=== PATIENT | female | born 1990 | race Caucasian/White ===

== ENCOUNTER 2019-09-28 09:26 | Inpatient (IN) | payer BC, OTHER ==
[2019-09-28] MEDS ORDERED: Bupivacaine PF 0.5% 30 ML VIAL ONE (11:32)
[2019-09-28 18:49] VITALS: BMI 41.5
[2019-09-28] MEDS ORDERED: Lidocaine 1% (PF) 30 ML VIAL SC PRN (19:01)
[2019-09-28] MEDS ORDERED: hydrALAZINE 20 MG/ML VIAL SLOW IVP PRN (19:01)
[2019-09-28] MEDS ORDERED: Butorphanol Tartrate 1 MG/ML VIAL SLOW IVP PRN (19:01)
[2019-09-28] MEDS ORDERED: Promethazine HCl 25 MG/ML VIAL IM PRN (19:01)
[2019-09-28] MEDS ORDERED: NS / Oxytocin 40 units/1000ml 1,000 ML IV PRN (19:01)
[2019-09-28] MEDS ORDERED: HYDROcodone/Acetaminophen 5/325 mg Tablet PO PRN ×2 (19:01)
[2019-09-28] MEDS ORDERED: Ibuprofen 800 MG TAB PO PRN (19:01)
[2019-09-28] MEDS ORDERED: Ondansetron PF 4 MG/2 ML Vial IVP PRN (19:01)
--- NOTE | 2019-09-28 19:03 | PDOC.BPN ---
- Brief Progress Note Asked to place courtesy orders in for Dr Zeng. Patient not seen by me at this time. Care as per primary MD.
[2019-09-28 20:38] LABS: Hemoglobin 13.2 g/dL (12.0-16.0); Mean Corpuscular HGB CONC 35.7 g/dL (32.0-36.0); Mean Corpuscular Hemoglobin 33.8 pg (27.0-31.0); Mean Corpuscular Volume 94.6 fL (78.0-98.0); Mean Platelet Volume 8.1 fL (7.4-10.4); Platelet Count 213 thou/uL (130-400); RBC Distribution Width 12.1 % (11.5-14.5); Red Blood Cell (RBC) Count 3.92 mill/uL (4.20-5.40); White Blood Cell (WBC) Count 10.7 thou/uL (4.8-10.8)
[2019-09-28] MEDS: Misoprostol 100 MCG TAB VAG SCH ×2 (20:41→23:58)
[2019-09-28] MEDS: Lactated Ringer's 1,000 ML IV SCH ×2 (20:41→23:27)
[2019-09-28 21:00] LABS: ALT (SGPT) 13 U/L (8-55); AST (SGOT) 18 U/L (5-34); Albumin 3.5 g/dL (3.5-5.0); Alkaline Phosphatase 139 U/L (40-110); Anion Gap 14 mmol/L (10-20); BUN (Urea Nitrogen) 7 mg/dL (7.0-18.7); Bilirubin, Total 0.4 mg/dL (0.2-1.2); Calc. Creatinine Clearance 182 mL/min (70-130); Calcium 8.1 mg/dL (7.8-10.44); Carbon Dioxide 20 mmol/L (22-29); Chloride 107 mmol/L (98-107); Estimated GFR-MDRD Greater than 90; Globulin 2.5 g/dL (2.4-3.5); Glucose 89 mg/dL (70-105); Potassium 3.6 mmol/L (3.5-5.1); Sodium 137 mmol/L (136-145)
[2019-09-28 21:17] LABS: Syphilis Antibody Nonreactive (Nonreactive); Syphilis Antibody Index 0.05 S/CO (<1.00 Non-Reactive)
[2019-09-28 23:38] LABS: HBSAg Index 0.17 S/CO (0-0.99); HIV (1/2) Antibody/Antigen Non-Reactive (NonReactive); HIV 1/2 INDEX 0.11 S/CO (<1.00); Hep B Surf Ag Non-Reactive S/CO (NonReactive)
[2019-09-29] MEDS: Misoprostol 100 MCG TAB VAG SCH (03:59)
[2019-09-29] MEDS: NS w/ Oxytocin 10 units 500 ML IV SCH (07:54)
[2019-09-29] MEDS: Lactated Ringer's 1,000 ML IV SCH ×3 (11:40→16:03)
[2019-09-29] MEDS ORDERED: Fentanyl 4 mcg/Bup 0.1% Cadd 100 ML ONE ×2 (11:46→19:40)
[2019-09-29] MEDS ORDERED: PHENYLEPHRINE-NS 100 MCG/ML 10 ML SYRINGE ONE ×2 (15:27→20:33)
[2019-09-29] MEDS ORDERED: Azithromycin 500 MG VIAL ONE (20:27)
[2019-09-29] MEDS ORDERED: Oxytocin 10 UNITS/ML VIAL ONE ×2 (20:28→21:00)
[2019-09-29] MEDS ORDERED: Ondansetron PF 4 MG/2 ML Vial ONE (20:28)
[2019-09-29] MEDS ORDERED: MORPHINE 5 MG/10 ML PF VIAL ONE (20:28)
[2019-09-29] MEDS ORDERED: HYDROcodone/Acetaminophen 5/325 mg Tablet PO PRN (20:32)
[2019-09-29] MEDS ORDERED: Lanolin Ointment 7 GM TUBE TOP PRN (20:32)
[2019-09-29] MEDS ORDERED: diphenhydrAMINE 25 MG CAP PO PRN (20:32)
[2019-09-29] MEDS ORDERED: Acetaminophen 325 MG TAB PO PRN (20:32)
[2019-09-29] MEDS ORDERED: hydrALAZINE 20 MG/ML VIAL SLOW IVP PRN (20:32)
[2019-09-29] MEDS ORDERED: Dexamethasone 4 mg/ml Vial ONE (20:33)
[2019-09-29] MEDS ORDERED: Ketorolac Tromethamine 30 MG/ML VIAL ONE (20:33)
[2019-09-29] MEDS ORDERED: Midazolam HCl 2 mg/2 ml Vial ONE (20:49)
[2019-09-29] MEDS ORDERED: Fentanyl 100 MCG/2 ML VIAL ONE (20:49)
[2019-09-29] MEDS ORDERED: Ondansetron PF 4 MG/2 ML Vial IVP PRN (21:06)
[2019-09-29] MEDS ORDERED: Meperidine HCl/PF 25 MG/ML VIAL SLOW IVP PRN (21:06)
[2019-09-29] MEDS ORDERED: diphenhydrAMINE 50 MG/ML VIAL IVP PRN (21:06)
[2019-09-29] MEDS ORDERED: Promethazine HCl 25 MG SUPP PR PRN (21:06)
[2019-09-29] MEDS ORDERED: Naloxone HCl 0.4 mg/ml Vial IV PRN (21:06)
[2019-09-29] MEDS ORDERED: Naloxone HCl 0.4 mg/ml Vial IVP PRN ×2 (21:06)
[2019-09-29] MEDS ORDERED: Promethazine HCl 25 MG/ML VIAL IM PRN (21:06)
[2019-09-29] MEDS ORDERED: L&D-Morphine 4 MG/ML VIAL SLOW IVP PRN (21:06)
[2019-09-29] MEDS ORDERED: Ondansetron HCl/PF 4 MG/2 ML Vial IVP PRN (21:06)
[2019-09-29] MEDS ORDERED: HYDROmorphone 2 MG/ML VIAL SLOW IVP PRN (21:06)
[2019-09-29] MEDS ORDERED: Communication Order-Pharmacy FS SCH (21:15)
[2019-09-30] MEDS: Misoprostol 100 MCG TAB VAG SCH ×2 (00:10→00:11)
[2019-09-30] MEDS: Docusate Calcium (SURFAK) 240 MG CAP PO SCH ×3 (00:11→21:31)
[2019-09-30] MEDS: Ibuprofen 800 MG TAB PO SCH ×4 (00:11→21:32)
[2019-09-30] MEDS: NS w/ Oxytocin 10 units 500 ML IV SCH (00:12)
[2019-09-30] MEDS: Lactated Ringer's 1,000 ML IV SCH (00:12)
--- NOTE | 2019-09-30 01:37 | OP ---
DATE OF PROCEDURE: 09/29/2019 PREOPERATIVE DIAGNOSES: 1. A 29-year-old white female, G1, P0, at 38-39 weeks. 2. Mild gestational hypertension. 3. Status post labor induction. 4. Non-reassuring heart rate tracing remote from delivery. 5. Failure to progress at 4 cm. POSTOPERATIVE DIAGNOSES: 1. A 29-year-old white female, G1, P0, at 38-39 weeks. 2. Mild gestational hypertension. 3. Status post labor induction. 4. Non-reassuring heart rate tracing remote from delivery. 5. Failure to progress at 4 cm. PROCEDURE PERFORMED: Primary low transverse section without extension. RESEARCH ASSOCIATE MOLECULAR BIOLOGY SURGEON: Wisam Monzon MD ANESTHESIA: Epidural. QUANTITATIVE BLOOD LOSS: 375 mL. COMPLICATIONS: None. COUNTS: Correct x2. ANTIBIOTICS: 2 g Ancef and Zithromax per protocol. FINDINGS: 1. Female , vertex presentation, noted to have umbilical cord just anterior cephalad just beneath the symphysis pubis. 2. Apgars were 8 and 9. weight 6 pounds 1 ounce. 3. Normal-appearing fallopian tubes, uterus, and ovaries. DISPOSITION: Recovery room, stable. DESCRIPTION OF PROCEDURE: The patient previously received informed consent in regard to surgery. She was taken back to the operating room and was placed on the operative table. The epidural had been adequately dosed for operative procedure. She was prepped and draped in usual sterile fashion. At this time, a Pfannenstiel incision was made in the lower abdomen and was carried down the fascia. Fascia was nicked in the midline. Fascial incision was extended bilaterally with the use of curved Scanlon scissors. The rectus fascia was then dissected superiorly and inferiorly off the rectus muscle bellies. Rectus muscle bellies were divided in midline. Peritoneal cavity was entered and Thai O retractors, large size was placed. Bladder flap was created in usual fashion, and then a 2 cm hysterotomy incision was made in the lower uterine segment. This was extended via finger fractionation. The baby was then delivered through the hysterotomy incision in vertex presentation. The cord was doubly clamped and cut, and the baby was handed to pediatric team in attendance. Usual cord blood was obtained. Placenta was manually extracted. Uterus was externalized and curetted of any remaining placental fragments with dry laparotomy sponge. The uterus was returned back to the abdomen, and the hysterotomy incision was inspected and noted to be without extensions. The hysterotomy incision was then closed with #1 Monocryl in running locking fashion with good hemostasis confirmed. The pelvis was irrigated and suctioned again. Hysterotomy site was inspected. Hemostasis was confirmed. The Thai O retractor was then removed. The pelvis was reinspected, and again hemostasis was confirmed. The rectus muscle bellies were inspected, noted to be hemostatic prior to fascial closure. The fascia was closed with 0 PDS suture x2 in running continuous fashion. Subcutaneous tissue was noted to be hemostatic prior to approximation with a running 3-0 chromic suture. The skin was then sewed in 4-0 subcuticular Monocryl suture, and then Dermabond was placed over the incision site. The surgery was terminated. No anesthetic or surgical complications occurred. Job ID: [id number]
[2019-09-30] MEDS ORDERED: Sodium Chloride 0.9% 10 ML ONE (01:41)
[2019-09-30] MEDS: Ketorolac Tromethamine 30 MG/ML VIAL IVP SCH ×3 (03:00→14:49)
[2019-09-30] MEDS: Simethicone Chewable 80 MG TAB PO PRN ×2 (03:02→21:31)
[2019-09-30 06:15] LABS: Hemoglobin 12.7 g/dL (12.0-16.0); Mean Corpuscular HGB CONC 32.7 g/dL (32.0-36.0); Mean Corpuscular Hemoglobin 31.1 pg (27.0-31.0); Mean Corpuscular Volume 94.9 fL (78.0-98.0); Mean Platelet Volume 7.4 fL (7.4-10.4); Platelet Count 191 thou/uL (130-400); RBC Distribution Width 11.9 % (11.5-14.5); White Blood Cell (WBC) Count 19.1 thou/uL (4.8-10.8)
[2019-09-30] MEDS: Prenatal Vitamin 1 TAB PO SCH (07:42)
--- NOTE | 2019-09-30 07:50 | PDOC.PP ---
Post Progress Note Post Day #: 1 PO intake tolerated: yes Flatus: yes Ambulation: yes Vital Signs (12 hours) Temp Pulse Resp BP Pulse Ox 09/30/19 05:00 98.6 F 84 16 121/70 09/30/19 01:35 99.0 F 71 16 130/74 09/30/19 01:00 98.6 F 09/29/19 23:40 98.4 F 77 16 124/70 96 Weight Weight 220 lb - Physical Examination Abdominal: + bowel sounds, no distention, appropriately TTP Extremities: negative homans (B) Result Diagrams: 09/30/19 06:03 09/28/19 20:21 Additional Labs: Post Labs Blood Type O POSITIVE 09/28/19 21:07 Hep Bs Antigen Non-Reactive S/CO (NonReactive) 09/28/19 20:21 - Assessment/Plan post op day 1 from primary c/s for failure to progress and non reassurring heart rate traceing. Doing well. Hemodynamically stable. Blood pressures normotensive. Routine care.
[2019-09-30] MEDS ORDERED: Adacel (T-DAP) 0.5 ML SYRINGE IM ONE (09:00)
[2019-10-01] MEDS: Ibuprofen 800 MG TAB PO SCH (04:19)
[2019-10-01] MEDS: Docusate Calcium (SURFAK) 240 MG CAP PO SCH (07:50)
[2019-10-01] MEDS: Prenatal Vitamin 1 TAB PO SCH (07:50)
--- NOTE | 2019-10-01 08:22 | PDOC.PP ---
Post Progress Note Post Day #: 2 Subjective: Feels well PO intake tolerated: yes Flatus: yes Ambulation: yes Vital Signs (12 hours) Temp Pulse Resp BP Pulse Ox 10/01/19 08:04 98.1 F 86 20 132/81 98 10/01/19 04:20 98.7 F 76 16 107/67 10/01/19 00:20 98.6 F 87 16 121/63 Weight Weight 220 lb - Physical Examination Abdominal: + bowel sounds, no distention, appropriately TTP Extremities: negative homans (B) Result Diagrams: 09/30/19 06:03 09/28/19 20:21 Additional Labs: Post Labs Blood Type O POSITIVE 09/28/19 21:07 Hep Bs Antigen Non-Reactive S/CO (NonReactive) 09/28/19 20:21 - Assessment/Plan Post op day 2 from primary c/s. Blood pressures normal. Ambulating and tolerating diet. Baby doing well. Discharge home. has f/u in 6 weeks.
[2019-10-01 11:30] VITALS: BP 140/80; TEMP 98.1
== END 2019-10-01 13:15 | disposition home or self-care (01) | DRG 788 ==
LOC: L&D 18:16 → 3SW 09-30 00:51 → EDSTATUS 10-08 15:03
PROVIDERS: ADMIT Obstetrics & Gynecology; ATTEND Obstetrics & Gynecology
PROC: 10D00Z1 Extraction of Products of Conception, Low, Open Approach (ICD-10-PCS; principal; 2019-09-29)
DX: O13.4 Gestational [pregnancy-induced] hypertension without significant proteinuria, complicating childbirth (principal); Z3A.38 38 weeks gestation of pregnancy; Z37.0 Single live birth; O76 Abnormality in fetal heart rate and rhythm complicating labor and delivery; O69.89X0 Labor and delivery complicated by other cord complications, not applicable or unspecified
CPT/HCPCS: 36415; 80053; 85027; 86780; 86850; 86900; 86901; 87340; 87389; J0456; J0595; J0690; J1100; J1885; J2250; J2274; J2405; J2590; J3010; S0020